=== PATIENT | male | born 1945 | race Caucasian/White ===

== ENCOUNTER 2016-11-14 12:48 | Observation (INO) ==
--- NOTE | 2016-11-14 12:54 | Emergency Department Note ---
Disposition Clinical Impression: Dehydration, Hypotension Disposition: Home, Self-Care Condition: Good Instructions: Dehydration (ED), Hypotension (ED) Reasons to Return/Additional Instructions: Blood pressure screening: When you had your blood pressure taken, if the top number was greater than 120 with a bottom number was greater than 80, I discussed and recommended that you call your primary care provider or a physician of your choice this week to arrange follow-up for further evaluation of your blood pressure. Elevated blood pressures which go untreated can lead to stroke, heart attack, kidney failure and other life-threatening diseases. This is a screening exam and recommendations are to follow with your Family Physician. ( We discussed reasons why the elevation could be occurring at this time. ) If you have had an EKG and/or x-ray performed in the emergency department, it will be reviewed by the poultry offal icer and/or radiologist. If the review changes your diagnosis or treatment you will be contacted at the phone number you provided. Prescribed outpatient testing: Please call to schedule an appointment for the test that was ordered on the form provided. If you been prescribed an antibiotic: Take it as instructed until itis all finished. If you cannot tolerate that medication for some reason, call your physician for a replacement. If he had a specimen collected for a culture, a culture report takes 48-72 hours to generate. You will be contacted if a change in treatment is needed. Return if your condition worsens or if you have severe pain, fever, vomiting or difficulty breathing. If you received or were prescribed a medication that may cause drowsiness ( Tramadol, Phenergan, Trazodone, Diazepam, Lorazepam, Hydroxyzine, Xanax, Hydrocodone, Oxycodone, Codeine, or any other medication) DO NOT drive or drink alcohol, or operate machinery that requires you to be alert for at least 8 hours after taking that medication. If you smoke or chew tobacco products: discuss with your family physician options to help in the cessation in the use of tobacco products. If you to find a physician: Go to [email or web address] or call: [facility], [facility] [phone] [facility], You may have multiple scripts and some may have been electronically sent . If you are give a printed script please also take this in when filling the scripts. A diagnosis may require multiple medications to treat and all are important in your healthcare issues. Prescriptions: Clindamycin HCl 300 mg PO Q6H #40 capsule Referrals: Hubert Almeida MD [Primary Care Provider] - Forms: Work/School Release, ED Satisfaction Letter Time of Disposition: 15:50 Weakness HPI - General Chief complaint: ED General Medical Stated complaint: low BP Time Seen by Provider: 11/14/16 13:05 Source: patient Mode of arrival: ambulatory Limitations: no limitations Nursing Notes Reviewed: Yes Vital Signs Reviewed: Yes - History of Present Illness HPI Narrative: Patient about 2:00 this morning woke up with chills states that last for about 3 hours he said than the chills went away he said he then took a nap when he got up around 10:00 use, achy feeling weak and tired all over went to local urgent care where he was then sent up to the ER we received a phone call here in the ER stating that the patient was weak and tired and had no energy and was sent to the ER for evaluation upon arrival to the emergency room patient tells us he was sent up here because he had a hypotensive episode at the urgent care and was to be evaluated for the hypotension patient tells me he recently had a prostate biopsy procedure went well did not have any complications associated with it took 3 days of antibiotics states that he feel felt great after that but then could not explain the episode of waking with chilling at about 2:00 this morning patient here for evaluation at this time Pt Subjective Complaint: generalized weakness/fatigue Onset (ago): hour(s) (10) Duration: intermittent Location: generalized Pain Severity: mild Pain Scale: 2 If pain, quality: aching, dull Improves with: none Worsens with: none Context: recent surgery Associated symptoms: Reports: fever/chills, myalgias. Denies: chest pain, confusion, dark stools, diaphoresis, dysuria, easy bruising, headaches, loss of appetite, nausea/vomiting, rash, shortness of breath, syncope - Related Data Home Medications Medication Instructions Recorded Confirmed Atorvastatin [Lipitor] 40 mg PO HS 11/14/16 11/14/16 metFORMIN [Glucophage] 500 mg PO BID 11/14/16 11/14/16 Previous Rx's Medication Instructions Recorded Clindamycin HCl 300 mg PO Q6H #40 capsule 11/14/16 Allergies Allergy/AdvReac Type Severity Reaction Status Date / Time No Known Allergies Allergy Verified 11/14/16 11:58 All systems ED: reviewed and negative except as stated. Constitutional: Reports: fever. Denies: chills, weakness, weight change Eyes: Denies: eye pain, eye discharge ENT ED: Denies: ear pain, throat pain Cardiovascular: Denies: chest pain, palpitations Respiratory: Denies: cough, dyspnea Gastrointestinal: Denies: abdominal pain, nausea, vomiting Genitourinary: Denies: urgency, dysuria, frequency Musculoskeletal: Denies: back pain, neck pain Integumentary: Denies: rash, abrasion, lesions Neurological: Reports: weakness. Denies: headache Psychiatric: Denies: anxiety, depression Endocrine: Denies: fatigue Hematological/Lymphatic: Denies: easy bleeding Allergic/Immunologic: Denies: facial swelling Past Medical History - Past Medical History Attestation: Yes The following information was validated with the patient. Source: patient, old records reviewed, nursing notes reviewed Medical history: Reports: non-contributory Surgical history: Reports: other (Prostate biopsy) - Social History Smoking Status: Never smoker Smokeless Tobacco Status: No Alcohol use: Reports: none Physical Exam - General Limitations: no limitations General appearance: alert, in no apparent distress, obese - Head Head exam: atraumatic, normocephalic, normal inspection - Eye Eye exam: Present: normal appearance, PERRL, EOMI - ENT ENT exam: normal exam, normal oropharynx, mucous membranes moist, normal external ear exam - Neck Neck exam: Present: normal inspection, full ROM, trachea midline - Chest Chest inspection: Present: normal inspection, symmetric chest wall rise - Respiratory Respiratory exam: Present: normal lung sounds bilaterally - Cardiovascular Cardiovascular exam: Present: regular rate, normal rhythm, normal heart sounds - Abdominal Exam Abdominal exam: Present: soft, Non-Tender, normal bowel sounds. Absent: mass, pulsatile mass - Extremities Exam Extremities exam: Present: normal inspection, full ROM, normal capillary refill. Absent: tenderness, joint swelling - Expanded Lower Extremity Exam Neurovascular/Tendon exam: Present: normal capillary refill, normal fine/light touch Gait: observed and normal - Back Exam Back exam: Present: normal inspection, full ROM. Absent: muscle spasm - Neurological Exam Neurological exam: Present: alert, oriented X3, CN II-XII intact - Psychiatric Psychiatric exam: Present: normal affect, normal mood - Skin Skin exam: Present: warm, dry, intact, normal color Course Course Narrative: She was seen and evaluated patient was given 2 L of normal saline IV fluid patient was stating he did not want stay upon completion liters of fluid he was actually doing much better he then started having a little bit of chilling and then had an episode of hypotension and a little tachycardia without again as result the patient was then ordered an additional amount of fluid lactic acid being elevated we discussed with him possibly being infected from the results of the recent biopsy after long discussion he is agreeable to staying I spoke with Dr. Lugo he started on additional antibodies patient be transferred to [facility] he is stable at this time resting comfortably has no complaints patient responded to Rocephin and Toradol. Vital Signs Temperature 98.2 F 11/14/16 12:56 Pulse Rate 82 11/14/16 12:56 Respiratory Rate 18 11/14/16 12:56 Blood Pressure 75/52 11/14/16 12:56 O2 Sat by Pulse Oximetry 98 11/14/16 12:56 Temperature 102.6 F H 11/14/16 17:29 Pulse Rate 97 11/14/16 17:29 Respiratory Rate 20 11/14/16 17:29 Blood Pressure 125/82 11/14/16 17:29 O2 Sat by Pulse Oximetry 92 11/14/16 17:29 Oxygen Delivery Oxygen Delivery Room Air Weakness - MDM Narrative Medical decision making narrative: infection due to recent surgery - Differential Diagnosis Differential Diagnosis: Likely: sepsis/infection, dehydration, medication effect , metabolic - Lab Data Lab results reviewed: Yes I reviewed the patient's lab results. Result diagrams: 11/14/16 13:00 11/14/16 13:00 Lab Results 11/14/16 11/14/16 11/14/16 Range/Units 13:00 13:00 13:00 WBC 21.3 H (4.3-11.1) K/mcL RBC 4.85 (4.19-5.50) M/mcL Hgb 14.8 (12.9-16.9) g/dL Hct 43.6 (37.5-50.1) % MCV 89.9 (83.0-100.0) fL MCH 30.5 (28.0-33.3) pg MCHC 33.9 (31.6-35.5) g/dL RDW 12.3 (11.5-14.5) % Plt Count 183 (140-400) K/mcL MPV 10.6 (9.4-12.4) fL Immature Gran % 0.6 (0-4) % Seg Neutrophils % 87.3 % Lymphocytes % 6.0 % Monocytes % 5.7 % Eosinophils % 0.0 % Basophils % 0.4 % Neutrophils # 18.6 H (1.6-8.9) K/mcL Lymphocytes # 1.3 (0.6-4.6) K/mcL Monocytes # 1.2 (0.0-1.3) K/mcL Eosinophils # 0.0 (0.0-0.6) K/mcL Basophils # 0.1 (0.0-0.2) K/mcL PT 11.1 (9.4-12.1) Seconds INR 1.0 APTT 30.0 (26.0-36.0) Seconds VBG Lactic Acid (0.5-2.2) mmol/L Sodium 139 (136-145) mEq/L Potassium 4.6 H (3.5-4.5) mEq/L Chloride 103 (98-109) mEq/L Carbon Dioxide 23 (19-29) mEq/L BUN 18 (8-26) mg/dL Creatinine 1.61 H (0.72-1.25) mg/dL Est GFR ( Amer) 52 L (> 60) Est GFR (Non-Af Amer) 43 L (> 60) BUN/Creatinine Ratio 11 (6-26) Glucose 129 H (70-99) mg/dL Calculated Osmolality 292 (280-300) Calcium 9.3 (8.6-10.8) mg/dL Troponin I (0-0.03) ng/mL Urine Color (Yellow) Urine Clarity (Clear) Urine pH (5.0-8.0) pH Units Ur Specific [place] (1.010-1.025) Urine Protein (Neg-Trace) mg/dL Urine Glucose (UA) (Normal) mg/dL Urine Ketones (Negative) mg/dL Urine Blood (Negative) Urine Nitrite (Negative) Urine Bilirubin (Negative) Urine Urobilinogen (Normal) mg/dL Ur Leukocyte Esterase (Negative) Urine Microscopic RBC (0-3) per hpf Urine Microscopic WBC (0-3) per hpf Ur Squamous Epith Cells (None-Few) per lpf Hyaline Casts (None-Few) per lpf Ur Culture Indicated? (NO) 11/14/16 11/14/16 11/14/16 Range/Units 13:00 15:30 17:20 WBC (4.3-11.1) K/mcL RBC (4.19-5.50) M/mcL Hgb (12.9-16.9) g/dL Hct (37.5-50.1) % MCV (83.0-100.0) fL MCH (28.0-33.3) pg MCHC (31.6-35.5) g/dL RDW (11.5-14.5) % Plt Count (140-400) K/mcL MPV (9.4-12.4) fL Immature Gran % (0-4) % Seg Neutrophils % % Lymphocytes % % Monocytes % % Eosinophils % % Basophils % % Neutrophils # (1.6-8.9) K/mcL Lymphocytes # (0.6-4.6) K/mcL Monocytes # (0.0-1.3) K/mcL Eosinophils # (0.0-0.6) K/mcL Basophils # (0.0-0.2) K/mcL PT (9.4-12.1) Seconds INR APTT (26.0-36.0) Seconds VBG Lactic Acid 7.2 H* (0.5-2.2) mmol/L Sodium (136-145) mEq/L Potassium (3.5-4.5) mEq/L Chloride (98-109) mEq/L Carbon Dioxide (19-29) mEq/L BUN (8-26) mg/dL Creatinine (0.72-1.25) mg/dL Est GFR ( Amer) (> 60) Est GFR (Non-Af Amer) (> 60) BUN/Creatinine Ratio (6-26) Glucose (70-99) mg/dL Calculated Osmolality (280-300) Calcium (8.6-10.8) mg/dL Troponin I 0.02 (0-0.03) ng/mL Urine Color Yellow (Yellow) Urine Clarity Clear (Clear) Urine pH 5.0 (5.0-8.0) pH Units Ur Specific [place] <= 1.005 L (1.010-1.025) Urine Protein Negative (Neg-Trace) mg/dL Urine Glucose (UA) Normal (Normal) mg/dL Urine Ketones Negative (Negative) mg/dL Urine Blood Moderate H (Negative) Urine Nitrite Negative (Negative) Urine Bilirubin Negative (Negative) Urine Urobilinogen Normal (Normal) mg/dL Ur Leukocyte Esterase Negative (Negative) Urine Microscopic RBC 0-3 (0-3) per hpf Urine Microscopic WBC 3-5 H (0-3) per hpf Ur Squamous Epith Cells Few (None-Few) per lpf Hyaline Casts Few (None-Few) per lpf Ur Culture Indicated? NO (NO) - Radiology Data Radiology results reviewed: Yes I reviewed the patient's radiology results. ITS Impressions Chest X-Ray 11/14/16 12:54 IMPRESSION: No acute process. D/ / Eugene Iglesias MD / Eugene Iglesias MD Interpreting Provider: Eugene Iglesias MD - EKG Data EKG attestation: Yes I reviewed and interpreted this EKG. EKG results narrative: Sinus rhythm rate 79 NV 188 QRS 100 Q-T 377 access -49 Critical Care Time Critical Care Time: Yes Total Critical Care Time: 35 Attestation: Critical care performed: 35 minutes as a result, patient showing evidence which could be early signs of sepsis we also did do IV hydration and antibiotics blood cultures discussion with Dr. Lugo for admission patient was transferred to [facility] for further care and treatment management and evaluation Time is exclusive of separately billable procedures. Time includes: direct patient care, patient reassessment, coordination of patient care, interpretation of data (laboratory data, radiology data, and respiratory data), review of patient's medical records, medical consultation and documentation of patient care. Procedures included in critical care time: Procedures excluded from critical care time:
[2016-11-14 13:10] LABS: Basophils # 0.1 K/mcL (0.0-0.2); Basophils % 0.4 %; Hematocrit 43.6 % (37.5-50.1); Hemoglobin 14.8 g/dL (12.9-16.9); Immature Granulocytes % 0.6 % (0-4); Lymphocytes # 1.3 K/mcL (0.6-4.6); Mean Corpuscular HGB Conc 33.9 g/dL (31.6-35.5); Mean Corpuscular Hemoglobin 30.5 pg (28.0-33.3); Mean Corpuscular Volume 89.9 fL (83.0-100.0); Mean Platelet Volume 10.6 fL (9.4-12.4); Monocytes # 1.2 K/mcL (0.0-1.3); Monocytes % 5.7 %; Neutrophils # 18.6 K/mcL (1.6-8.9); Platelet Count 183 K/mcL (140-400); Red Blood Count 4.85 M/mcL (4.19-5.50); Red Cell Distribution Width 12.3 % (11.5-14.5); Segmented Neutrophils % 87.3 %
[2016-11-14] MEDS: 0.9 % Sodium Chloride 1,000 ML IVC SCH ×5 (13:11→21:33)
[2016-11-14 13:15] LABS: Prothrombin Time 11.1 Seconds (9.4-12.1)
[2016-11-14 13:25] LABS: Calcium 9.3 mg/dL (8.6-10.8); Potassium 4.6 mEq/L (3.5-4.5)
--- NOTE | 2016-11-14 14:19 | Electrocardiograph Report ---
[place] [id number] Test Date: 2016-11-14 Pat Name: Wagner Lay Department: [id number] Room: Gender: M Spool Carrier: [id number] : 1945 Requested By: Kate Kearns Order Number: [id number] Reading MD: Watson Vargas Measurements Intervals [place] Rate: 79 P: 11 MA: 188 QRS: -49 QRSD: 100 T: 15 QT: 377 QTc: 411 Interpretive Statements SINUS RHYTHM LEFT ANTERIOR FASCICULAR BLOCK Electronically Signed On 11-14-2016 14:18:31 EDT by Watson Vargas
[2016-11-14 15:34] LABS: Bilirubin,Urine Negative (Negative); Blood,Urine Moderate (Negative); Clarity,Urine Clear (Clear); Color,Urine Yellow (Yellow); Glucose,Urine (UA) Normal (Normal); Ketones,Urine Negative (Negative); Leukocyte Esterase,Urine Negative (Negative); Nitrite,Urine Negative (Negative); Protein,Urine Negative (Neg-Trace); Specific Gravity,Urine <= 1.005 (1.010-1.025); Urobilinogen,Urine Normal (Normal)
[2016-11-14 15:41] LABS: Hyaline Casts,Urine Few per lpf (None-Few); RBC,Urine 0-3 per hpf (0-3); Squamous Epithelial Cell,Urine Few per lpf (None-Few)
[2016-11-14] MEDS ORDERED: Ketorolac 30 MG/ML VIAL IVP ONE (17:06)
[2016-11-14] MEDS ORDERED: *HR* LORazepam 2 MG/ML VIAL IVP ONE (17:06)
[2016-11-14] MEDS ORDERED: Levofloxacin 500 MG/100 ML 500 MG/100 ML BAG IVPB ONE (17:44)
[2016-11-14] MEDS ORDERED: 0.9 % Sodium Chloride 1,000 ML IVC SCH ×2 (17:45→19:21)
[2016-11-14] MEDS ORDERED: D5% in Water 1,000 ML IVC PRN (19:21)
[2016-11-14] MEDS ORDERED: Dextrose Gel 15 GM PO PRN ×2 (19:21)
[2016-11-14] MEDS ORDERED: *HR* Dextrose 50 % in Water (Syg) 50 ML SYRINGE IVP PRN (19:21)
[2016-11-14] MEDS ORDERED: Ondansetron 4 MG/2 ML VIAL IVP PRN (19:21)
[2016-11-14] MEDS ORDERED: Naloxone 0.4 MG/ML INJ IVP PRN (19:21)
[2016-11-14] MEDS ORDERED: Ibuprofen 400 MG TABLET PO PRN (19:21)
[2016-11-14] MEDS: Acetaminophen 325 MG TABLET PO PRN (20:09)
[2016-11-14 20:13] LABS: Albumin 2.9 g/dL (3.5-5.0); Bilirubin,Direct 0.3 mg/dL (0.0-0.5); Bilirubin,Indirect 0.4 mg/dL (0.0-1.2); Bilirubin,Total 0.7 mg/dL (0.2-1.2); Globulin 2.9 g/dL (2.4-3.5); Total Protein 5.8 g/dL (6.0-8.3)
[2016-11-15 05:56] LABS: Basophils % 0.2 %; Eosinophils % 0.2 %; Hematocrit 36.2 % (37.5-50.1); Hemoglobin 12.2 g/dL (12.9-16.9); Immature Granulocytes % 0.9 % (0-4); Lymphocytes # 0.8 K/mcL (0.6-4.6); Lymphocytes % 4.9 %; Mean Corpuscular HGB Conc 33.7 g/dL (31.6-35.5); Mean Corpuscular Hemoglobin 30.6 pg (28.0-33.3); Mean Corpuscular Volume 90.7 fL (83.0-100.0); Monocytes # 0.8 K/mcL (0.0-1.3); Monocytes % 5.1 %; Neutrophils # 14.4 K/mcL (1.6-8.9); Platelet Count 111 K/mcL (140-400); Red Blood Count 3.99 M/mcL (4.19-5.50); Red Cell Distribution Width 12.6 % (11.5-14.5); Segmented Neutrophils % 88.7 %
[2016-11-15 06:04] LABS: INR 1.3; Prothrombin Time 13.9 Seconds (9.4-12.1)
[2016-11-15 06:06] LABS: Activated Partial Thrombo Time 29.9 Seconds (26.0-36.0)
[2016-11-15 06:16] LABS: Potassium 4.6 mEq/L (3.5-4.5)
[2016-11-15] MEDS: 0.9 % Sodium Chloride 1,000 ML IVC SCH ×3 (07:13→19:37)
[2016-11-15] MEDS: Insulin LISPRO 300 UNITS/3 ML VIAL SQ SCH ×3 (07:14→15:58)
[2016-11-15] MEDS: *HR* Metformin 500 MG TABLET PO SCH ×2 (07:18→16:36)
--- NOTE | 2016-11-15 11:36 | Internal Med History&Physical ---
Date of Encounter: 11/15/16 Time of Encounter: 11:05 Assessment and Plan (1) Sepsis Current visit: Yes Status: Acute Possibly secondary to bacteremia from prostate biopsy. He was given IV Rocephin and Levaquin empirically. Will recheck labs in a.m. Qualifiers: Sepsis type: sepsis due to unspecified organism Qualified Code(s): A41.9 - Sepsis, unspecified organism (2) Azotemia Current visit: Yes Status: Acute Creatinine was normal August 2016. We will recheck labs in a.m. (3) DM type 2 (diabetes mellitus, type 2) Current visit: Yes Status: Chronic Will continue metformin. Recheck labs in a.m. Qualifiers: Diabetes mellitus complication status: without complication Diabetes mellitus drainage inspector insulin use: without care home use Qualified Code(s): E11.9 - Type 2 diabetes mellitus without complications Internal Medicine - H&P: HPI Chief complaint: Chills Admitted From: Home Plans for Post Hospital Care: Home History of present illness: Mr. Lay is a 71 year old male who came to emergency room stating he had chills onset the previous day. He had biopsy of prostate done on November 12. He was placed on clindamycin at the time of the biopsy. He denies cough dyspnea nausea vomiting or diarrhea. He was evaluated in emergency room and found to have leukocytosis with left shift and azotemia. He was admitted to [facility] floor for ongoing care needs. He does not know the pathology report from the prostate biopsy. He denies known chronic kidney disease or other kidney or bladder disorders. Past Med Surg Social Fam HX - Past Medical History Medical history: non-contributory, diabetes, hyperlipidemia Psychiatric history: no psych history - Past Surgical History Surgical History: orthopedic, other, other - Social History Smoking Status: Never smoker Smokeless Tobacco Status: No Alcohol use: none Drug use: none - Family History Father Hx Family Endocrine Disorder: Yes (DM) Internal Medicine - H&P: Meds Atorvastatin [Lipitor] 40 mg PO HS 11/14/16 [History] Clindamycin HCl 300 mg PO Q6H #40 capsule 11/14/16 [Rx] metFORMIN [Glucophage] 500 mg PO BID 11/14/16 [History] Allergies No Known Allergies Allergy (Verified 11/14/16 11:58) All Systems PM: A 10-system review of systems was performed and is negative for pertinent findings except as documented above in the HPI. Review of systems: Cardiovascular: He denies [place] hypertension or failure angina DVT or pulmonary embolus Respiratory: He is a lifelong nonsmoker and has no known chronic lung disease GI: Denies disorders of his liver gallbladder or exocrine pancreas : As per history of present illness. Neurologic: He denies large distribution strokes or seizures Endocrine: He was diagnosed with DM 2 approximately 5 years ago. Hemoglobin A1c was 6.1% on 08/10/2016. 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 - Constitutional Vitals: Temp Pulse Resp BP Pulse Ox 99.8 F H 78 16 135/81 96 11/15/16 10:51 11/15/16 10:51 11/15/16 10:51 11/15/16 10:51 11/15/16 10:51 Exam: Gen.: He is a well-developed overweight male who appears in no acute distress at present time HEENT head is atraumatic and normocephalic. Eyes: EOMI. There is no scleral icterus. Mouth: Mucosa is moist. Neck: Supple and nontender. There is no thyromegaly or adenopathy noted. Heart: Regular without murmurs gallops or ectopics Lungs: No wheezes or crackles are heard Abdomen: Soft and nontender. No masses or guarding are noted. Extremities: There is no cyanosis edema or clubbing noted. Dorsalis pedis and posttibial pulses are 1-2 over 2 bilaterally. Neurologic: Mental status: He is talkative and a good historian. Cranial nerves : Smile is symmetric. Forehead wrinkles bilaterally. Tongue protrudes midline. EOMI. Motor: There is no pronator drift. Cerebellar: Finger to nose is intact bilaterally. Skin: Warm and dry Internal Med - H&P Results - Labs CBC & Chem 7: 11/14/16 13:00 11/14/16 13:00 Labs: Short CBC 11/15/16 Range/Units 05:32 WBC 16.2 H (4.3-11.1) K/mcL Hgb 12.2 L D (12.9-16.9) g/dL Hct 36.2 L (37.5-50.1) % Plt Count 111 L (140-400) K/mcL Neutrophils # 14.4 H (1.6-8.9) K/mcL BMP 11/15/16 05:32 Sodium 140 Potassium 4.6 H Chloride 108 Carbon Dioxide 23 BUN 23 Creatinine 1.43 H Glucose 119 H Calcium 8.0 L Liver Function 11/14/16 Range/Units 19:50 Total Bilirubin 0.7 (0.2-1.2) mg/dL Direct Bilirubin 0.3 (0.0-0.5) mg/dL AST 19 (5-34) Units/L ALT 19 (0-55) Units/L Alkaline Phosphatase 102 (38-126) Units/L Albumin 2.9 L (3.5-5.0) g/dL
[2016-11-15] MEDS ORDERED: Levofloxacin 750 MG/150 ML 750 MG/150 ML BAG IVPB SCH (18:00)
[2016-11-15] MEDS: Acetaminophen 325 MG TABLET PO PRN (18:19)
[2016-11-16 05:53] LABS: Basophils % 0.4 %; Eosinophils # 0.1 K/mcL (0.0-0.6); Hematocrit 35.7 % (37.5-50.1); Immature Granulocytes % 0.2 % (0-4); Lymphocytes # 0.7 K/mcL (0.6-4.6); Lymphocytes % 7.5 %; Mean Corpuscular HGB Conc 33.6 g/dL (31.6-35.5); Mean Corpuscular Hemoglobin 30.2 pg (28.0-33.3); Mean Corpuscular Volume 89.9 fL (83.0-100.0); Mean Platelet Volume 11.5 fL (9.4-12.4); Monocytes # 0.8 K/mcL (0.0-1.3); Monocytes % 8.7 %; Neutrophils # 7.7 K/mcL (1.6-8.9); Platelet Count 106 K/mcL (140-400); Red Blood Count 3.97 M/mcL (4.19-5.50); Red Cell Distribution Width 12.6 % (11.5-14.5); Segmented Neutrophils % 82.2 %
[2016-11-16] MEDS ORDERED: *HR* Enoxaparin 40 MG/0.4 ML SYRINGE SQ SCH (06:00)
[2016-11-16 06:13] LABS: BUN/Creatinine Ratio 17 (6-26); Blood Urea Nitrogen 20 mg/dL (8-26); Calcium 8.4 mg/dL (8.6-10.8); Carbon Dioxide 21 mEq/L (19-29); Chloride 110 mEq/L (98-109); Glucose 106 mg/dL (70-99); Magnesium 1.5 mg/dL (1.6-2.6); Osmolality,Calculated 295 (280-300); Potassium 3.8 mEq/L (3.5-4.5); Sodium 141 mEq/L (136-145); eGFR For African Americans > 60 (> 60); eGFR For Non-African Americans > 60 (> 60)
[2016-11-16 06:44] VITALS: BP 125/76
--- NOTE | 2016-11-16 08:13 | Discharge Summary ---
Date of Encounter: 11/16/16 Time of Encounter: 08:00 - Discharge Diagnosis (1) Sepsis Priority: Primary Status: Acute Qualifiers: Sepsis type: sepsis due to unspecified organism Qualified Code(s): A41.9 - Sepsis, unspecified organism (2) Azotemia Priority: Secondary Status: Resolved (3) DM type 2 (diabetes mellitus, type 2) Priority: Secondary Status: Chronic Qualifiers: Diabetes mellitus complication status: without complication Diabetes mellitus senior living insulin use: without rat exterminator use Qualified Code(s): E11.9 - Type 2 diabetes mellitus without complications - Discharge Medications Prescriptions: Lactobacillus [Culturelle] 1 each PO BID #6 cap.sprink levoFLOXacin [Levaquin] 500 mg PO DAILY #3 tablet Home Medications: Atorvastatin [Lipitor] 40 mg PO HS 11/14/16 [History] Clindamycin HCl 300 mg PO Q6H #40 capsule 11/14/16 [Rx] metFORMIN [Glucophage] 500 mg PO BID 11/14/16 [History] Lactobacillus [Culturelle] 1 each PO BID #6 cap.sprink 11/16/16 [Rx] levoFLOXacin [Levaquin] 500 mg PO DAILY #3 tablet 11/16/16 [Rx] Allergies/Adverse Reactions: Allergies No Known Allergies Allergy (Verified 11/14/16 11:58) Date of admission: 11/14/16 18:42 Primary care physician: Hubert Almeida MD - Patient Status Disposition: Home, Self-Care Condition: Good Functional capacity at discharge: independent ambulation Overall status at discharge: patient is progressing back to baseline - Discharge Instructions Follow Up With: Hubert Almeida MD [Primary Care Provider] - 1 week - Diet and Activity Activity: resume usual activities as tolerated Diet: advance to your usual diet Hospital course: Mr. Lay is a 71 year old male who came to emergency room stating he had chills onset the previous day. He had biopsy of prostate done on November 12. He was placed on clindamycin at the time of the biopsy. He denies cough dyspnea nausea vomiting or diarrhea. He was evaluated in emergency room and found to have leukocytosis with left shift and azotemia. He was admitted to [facility] floor for ongoing care needs. Initial orders were written by the emergency room physician. I saw him on November 15 and performed a history and physical. He was started on IV Rocephin and Levaquin. He had good clinical response with WBC returning to normal at 9.3 on November 16 with 82.2% segs. He remained afebrile the last 24 hours of hospitalization. He felt significantly improved and stable for discharge home when I saw him November 16. He will continue with Levaquin and probiotics for 3 additional days at discharge. He will also continue clindamycin given him at the time of his prostate biopsy. His azotemia resolved with creatinine being 1.18 on the day of discharge with estimated GFR greater than 60. He will follow with his PCP Hubert almeida M.D. within 1 week. - Time Spent with Patient Total time spent providing and/or coordinating discharge services: - Constitutional Vitals: Temp Pulse Resp BP Pulse Ox 98.9 F 76 16 125/76 95 11/16/16 06:41 11/16/16 06:41 11/16/16 06:41 11/16/16 06:41 11/16/16 06:41
[2016-11-16] MEDS: *HR* Metformin 500 MG TABLET PO SCH (08:15)
[2016-11-16] MEDS: Insulin LISPRO 300 UNITS/3 ML VIAL SQ SCH (08:15)
== END 2016-11-16 10:18 | disposition home or self-care (01) ==
LOC: INPPIK 12:48 → EMEROOPIK 12:48 → INPPIK 19:23
PROVIDERS: ADMIT Internal Medicine; ATTEND Internal Medicine